=== PATIENT | female | born 1990 | race Two or more races ===

== ENCOUNTER 2016-07-22 09:10 | Emergency (ER) | payer OTHER ==
[2016-07-22] MEDS ORDERED: IBUPROFEN 600 MG TABLET PO ONE (09:49)
[2016-07-22] MEDS ORDERED: DIPH/PERTUSS(ACELL)/TETANUS VAC/PF 0.5 ML SYR (>=10YO) IM ONE (09:50)
[2016-07-22] MEDS ORDERED: LIDOCAINE 1% INJ-PF (10 MG/ML) 30 ML SDV INJ ONE (09:50)
[2016-07-22] MEDS ORDERED: CIPROFLOXACIN HCL 500 MG TABLET PO ONE (09:54)
--- NOTE | 2016-07-22 09:58 | ER Document Report ---
ED Extremity Problem, Lower - General Chief Complaint: Foot Injury Stated Complaint: RIGHT FOOT INJURY Time seen by provider: 09:55 Mode of Arrival: Ambulatory Information source: Patient Notes: 26-year-old female presents to ED for laceration to the bottom of her right foot when she stepped on glass the penetrated her shoe. Patient stated the laceration continued to bleed for several hours until she came to the emergency room she states she stepped on the glass at about 147 this morning. TRAVEL OUTSIDE OF THE [place] IN LAST 30 DAYS: No - HPI Patient complains to provider of: Injury, Pain Location: Foot Occurred: This morning - 147 this morning Where: Outdoors, Work Onset/Duration: Sudden Quality of pain: Sharp Severity: Moderate Pain Level: 3 Context: Laceration, Wearing shoes Recent injury: Yes Associated symptoms: Painful ambulation Exacerbated by: Movement, Walking Relieved by: Elevation - Related Data Allergies/Adverse Reactions: No Known Allergies Allergy (Verified 07/22/16 09:19) Past Medical History - General Information source: Patient - Social History Smoking Status: Current Every Day Smoker Cigarette use (# per day): Yes - half pack a day Chew tobacco use (# tins/day): No Smoking Education Provided: Yes - less than 2 minutes Frequency of alcohol use: Heavy - Every one to 2 days Drug Abuse: None Occupation: Works of the [employer] Lives with: Friend Family History: Arthritis, DM, Hyperlipidemia, Hypertension, Malignancy, Thyroid Disfunction Patient has suicidal ideation: No Patient has homicidal ideation: No - Past Medical History Cardiac Medical History: Reports: None Pulmonary Medical History: Reports: None EENT Medical History: Reports: None Neurological Medical History: Reports: None Endocrine Medical History: Reports: None Renal/ Medical History: Reports: None Malignancy Medical History: Reports: None GI Medical History: Reports: None Musculoskeltal Medical History: Reports None Skin Medical History: Reports None Psychiatric Medical History: Reports: None Traumatic Medical History: Reports: None Infectious Medical History: Reports: None Past Surgical History: Reports: Hx Umbilical Hernia - 2 - Immunizations Hx Diphtheria, Pertussis, Tetanus Vaccination: Yes - 07/22/2016 Review of Systems - Review of Systems Constitutional: No symptoms reported EENT: No symptoms reported Cardiovascular: No symptoms reported Respiratory: No symptoms reported Gastrointestinal: No symptoms reported Genitourinary: No symptoms reported Female Genitourinary: No symptoms reported Musculoskeletal: No symptoms reported Skin: Other - Laceration to the bottom of the right foot Hematologic/Lymphatic: No symptoms reported Neurological/Psychological: No symptoms reported -: Yes All other systems reviewed and negative Physical Exam - Vital signs Vitals: Temp Pulse Resp BP Pulse Ox 98.5 F 82 16 113/69 98 07/22/16 09:13 07/22/16 09:13 07/22/16 09:13 07/22/16 09:13 07/22/16 09:13 Interpretation: Normal - General General appearance: Appears well, Alert - HEENT Head: Normocephalic, Atraumatic Eyes: Normal Pupils: PERRL - Respiratory Respiratory status: No respiratory distress Chest status: Nontender Breath sounds: Normal Chest palpation: Normal - Cardiovascular Rhythm: Regular Heart sounds: Normal auscultation Murmur: No - Abdominal Inspection: Normal Distension: No distension Bowel sounds: Normal Tenderness: Nontender Organomegaly: No organomegaly - Back Back: Normal, Nontender - Extremities General upper extremity: Normal inspection, Nontender, Normal color, Normal ROM , Normal temperature General lower extremity: Normal inspection, Nontender, Normal color, Normal ROM , Normal temperature, Normal weight bearing. No: Tasha's sign - Neurological Neuro grossly intact: Yes Cognition: Normal Orientation: AAOx4 June Coma Scale Eye Opening: Spontaneous [place] Coma Scale Verbal: Oriented June Coma Scale Motor: Obeys Commands [place] Coma Scale Total: 15 Speech: Normal Motor strength normal: LUE, RUE, LLE, RLE Sensory: Normal - Psychological Associated symptoms: Normal affect, Normal mood - Skin Skin Temperature: Warm Skin Moisture: Dry Skin Color: Normal Skin irregularity: Laceration Location of irregularity: Extremities - Right foot Course - Vital Signs Vital signs: Temp Pulse Resp BP Pulse Ox 98.4 F 77 18 126/70 H 100 07/22/16 12:15 07/22/16 12:15 07/22/16 12:15 07/22/16 12:15 07/22/16 12:15 - Diagnostic Test Radiology reviewed: Image reviewed, Reports reviewed Procedures - Laceration/Wound Repair Right Lateral Foot Wound length (cm): 3.5 Wound's Depth, Shape: Other - Kyra with hook Laceration pre-procedure: Sterile PPE donned, Sterile drapes applied, Other - surgical prep Volume Anesthetic (mLs): 8 Wound explored: Contaminated Irrigated w/ Saline (mLs): 250 Wound Repaired With: Sutures Suture Size/Type: 4:0, Ethilon Number of Sutures: 5 Layer Closure?: No Post-procedure wound care: Sterile dressing applied Post-procedure NV exam normal: Yes Complications: No Discharge - Discharge Clinical Impression: right plantar surface of foot laceration Condition: Stable Disposition: HOME, SELF-CARE Instructions: Family Physicians / Practices Additional Instructions: LACERATION CARE: Your laceration has been sutured to keep the skin edges aligned during healing. The time of suture removal depends on the nature and location of your cut. Please follow the care instructions the doctor has outlined for you and return for further care, according to the schedule you've been given. Keep the wound and dressing clean. Unless you were told otherwise, you may shower daily, blotting the wound dry with a clean, unused towel. At other times, If the dressing gets wet or blood soaked, remove it and blot the wound dry, then reapply a new dressing. Unless you were instructed otherwise, dressings should be changed at least daily. If any signs of infection occur (swelling, redness, drainage, increasing tenderness, red streaks, tender lumps in the armpit or groin above the laceration, or fever), see the doctor immediately. SOAP CLEANSING: Gently wash the wound daily using a mild soap (like Ivory, Phisoderm, Neutrogena). Use warm water, rubbing gently until all debris, ooze, and crusting have been washed from the wound. Allow to dry briefly (about 10 minutes) after cleaning. Repeat this cleansing at least three times a day for the first two days and then once or twice a day. ANTIBIOTIC OINTMENT PROTECTION: Your wounds are such that dressing them is not practical or optional. After cleansing, you should apply a thin coating of antibiotic ointment ( Bacitracin, not Neosporin) to the wounds at least three times daily. This lessens infection risk, and may decrease the amount of scarring. Use a q-tip or dull butter knife, not your finger, to apply this ointment. Any debris or ooze which builds up in the ointment should be gently rubbed off with a sterile gauze pad. Harder crusting may need to be gently scrubbed off with a clean wash cloth with soap and warm water, perhaps applying a warm, wet wash cloth to the wound for ten minutes first. Development of redness, severe itching, or blistering may mean allergy to the ointment. See the doctor. TETANUS IMMUNIZATION GIVEN: You have been given an immunization against tetanus. Please record this in your records. In general, a booster is needed only once every 10 years. The tetanus shot protects against tetanus or "lockjaw," which is a complication of certain wound infections (the tetanus shot cannot protect against the actual infection). The immunization site may become warm and red due to local reaction. If this occurs, apply warm compresses and take aspirin or ibuprofen to reduce inflammation and discomfort. Return for evaluation if the reaction becomes severe. PROPHYLACTIC ANTIBIOTIC: The antibiotics which have been prescribed are designed to decrease the risk of infection. Only certain types of wounds benefit from this -- the typical cut, scrape, or burn DOES NOT require antibiotics. Of course, infection can still occur despite the use of prophylactic antibiotics. Your wound will heal with less chance of an infectious complication if you take the medication as directed. The most important dose is the FIRST dose, so don't delay filling the prescription! ORAL NARCOTIC MEDICATION: You have been given a prescription for pain control. This medication is a narcotic. It's best taken with food, as nausea can result if taken on an empty stomach. Don't operate machinery or drive within six hours of taking this medication. Do not combine this medicine with alcohol, or with any medication which can cause sedation (such as cold tablets or sleeping pills) unless you get permission from the physician. Narcotics tend to cause constipation. If possible, drink plenty of fluids and eat a diet high in fiber and fruits. FOLLOW-UP CARE: Please return in __4___ days for an infection check and dressing change. Your sutures should be removed in ___10__ days. To facilitate a timely removal of your sutures, you may return to the Emergency Department at [facility]. You do not need to call for an appointment, but the best time to come in for suture removal is early in the morning. If you have been referred to another physician for follow-up care, call that physicians office for an appointment as you were instructed. If you experience a significant change in your laceration, or if you are concerned there may be an infection (swelling, redness, drainage, increasing tenderness, red streaks, tender lumps in the armpit or groin above the laceration, or fever) , return to the Emergency Department immediately re-evaluation. Prescriptions: Hydrocodone/Acetaminophen [[place] 5-325 mg Tablet] 1 tab PO Q6HP PRN #14 tablet PRN Reason: Ciprofloxacin HCl [Cipro 500 mg Tablet] 500 mg PO BID #20 tablet Forms: Smoking Cessation Education, Return to Work
[2016-07-22 12:31] VITALS: BP 126/70
== END 2016-07-22 12:20 | disposition home or self-care (01) ==
LOC: ER 09:10
PROC: 0HQMXZZ Repair Right Foot Skin, External Approach (ICD-10-PCS; principal; 2016-07-22)
DX: S91.311A Laceration without foreign body, right foot, initial encounter (principal); F17.210 Nicotine dependence, cigarettes, uncomplicated; W18.02XA Striking against glass with subsequent fall, initial encounter; Y99.0 Civilian activity done for income or pay; Z23 Encounter for immunization
CPT/HCPCS: 12042; 99283; 90471; 73620; 90715; J3490

== ENCOUNTER 2020-04-14 15:56 | Emergency (ER) | payer MEDICAID ==
[2020-04-14 16:03] VITALS: BP 125/72
--- NOTE | 2020-04-14 16:27 | ER Document Report ---
ED Suture/Wound Recheck - General Chief Complaint: Suture Removal Stated Complaint: SUTURE REMOVAL/ARMS Time Seen by Provider: 04/14/20 16:19 Primary Care Provider: JOSÉ MIGUEL FERNÁNDEZ DO [ACTIVE STAFF] - Follow up in 1 week (for orthopedic follow up) TRAVEL OUTSIDE OF THE [place] IN LAST 30 DAYS: No - HPI Notes: 29-year-old female to the emergency department with complaints of needing suture removal to multiple dog bites to both of her arms and complaining of left hand pain that is persistent since she was bit. She states she was bit by her brothers rescue dog. Dog is up-to-date on immunizations. She states that she had initially forced sutures placed. To have fallen out. She states the back of her left hand is still very painful and she has some numbness and tingling into the middle finger, ring finger, and pinky. She denies any decrease in strength. She states when you turn touch on the portion of the back of her hand that increases her pain into her hands. She states that when she was initially seen she did not have an x-ray of the hand. She has been using Motrin. She states that she is about to finish her 7-day course of Augmentin. - Related Data Allergies/Adverse Reactions: No Known Allergies Allergy (Verified 07/22/16 09:19) Past Medical History - General Information source: Patient - Social History Smoking Status: Never Smoker Frequency of alcohol use: None Drug Abuse: None Family History: Arthritis, DM, Hyperlipidemia, Hypertension, Malignancy, Thyroid Disfunction Renal/ Medical History: Denies: Hx Peritoneal Dialysis Past Surgical History: Reports: Hx Abdominal Surgery - umbilical hernia, Hx Umbilical Hernia - 2 - Immunizations Hx Diphtheria, Pertussis, Tetanus Vaccination: Yes - 07/22/2016 Review of Systems - Review of Systems Constitutional: denies: Chills, Fever EENT: No symptoms reported Cardiovascular: denies: Chest pain, Palpitations, Heart racing, Syncope, Dizziness, Lightheaded Respiratory: denies: Cough, Short of breath Gastrointestinal: denies: Abdominal pain, Diarrhea, Nausea Musculoskeletal: See HPI Skin: See HPI Neurological/Psychological: No symptoms reported -: Yes All other systems reviewed and negative Physical Exam - Vital signs Vitals: Temp Pulse Resp BP Pulse Ox 98.6 F 97 20 125/72 100 04/14/20 16:02 04/14/20 16:02 04/14/20 16:02 04/14/20 16:02 04/14/20 16:02 Interpretation: Normal Notes: PHYSICAL EXAMINATION: GENERAL: Well-appearing, well-nourished and in no acute distress. HEAD: Atraumatic, normocephalic. NECK: Normal range of motion, supple without lymphadenopathy LUNGS: Breath sounds clear to auscultation bilaterally and equal. No wheezes rales or rhonchi. HEART: Regular rate and rhythm without murmurs EXTREMITIES: Normal range of motion, no pitting or edema. No cyanosis. See skin. There is tenderness to palpation over the dorsum of the left hand overly ing the fifth metacarpal. No edema or erythema. There is no warmth to this area. Increases with pain with movement. She states she has decreased sensation to the back of the left pinky, ring finger, middle finger. She has no snuffbox tenderness bilaterally she has 5 out of 5 strength in testing of both flexor tendons as well as the extensor tendon in all fingers against resistance. Cap refill is less than 2 seconds. Radial pulses are intact and equal NEUROLOGICAL: No focal neurological deficits. Moves all extremities spontaneously and on command. PSYCH: Normal mood, normal affect. SKIN: Warm, Dry, normal turgor, there are multiple dog bites to the left and right forearm as well as the left hand. There are 12 sutures intact. They seem to be healing well. There is no purulence. There is mild tenderness to palpation over a dog bite to the left thumb. There is no purulence or streaking erythema. See musculoskeletal for further discussion. Course - Re-evaluation Re-evalutation: 04/14/20 Impression: Suture removal, multiple dog bites, left hand paresthesia. X-ray is reassuring for no fractures and no retained foreign body. Patient does not have any snuffbox tenderness. Suspect that when she was bit it created some inflammation and that is giving her a little paresthesia into the hand. However we will send her to follow-up with orthopedist. I have also extended her antibiotics for 3 more days for a total of 10 days of Augmentin. I have encouraged her to return if she has any worsening symptoms such as fevers, purulent discharge, worsening pain, streaking redness. Patient agrees with plan. - Vital Signs Vital signs: Temp Pulse Resp BP Pulse Ox 98.6 F 97 20 125/72 100 04/14/20 16:02 04/14/20 16:02 04/14/20 16:02 04/14/20 16:02 04/14/20 16:02 - Diagnostic Test Radiology reviewed: Image reviewed, Reports reviewed Discharge - Discharge Clinical Impression: Visit for suture removal, Visit for wound check, Left hand paresthesia Condition: Stable Disposition: HOME, SELF-CARE Instructions: Animal Bites ([facility]) Additional Instructions: Your Xray was reassuring today -- no fractures or retained teeth from dog bite. Please follow up with the orthopedist listed for further evaluation of the numbness in your hand. Continue the 800mg Motrin for pain and take steroids. Your antibiotics have been extended today for another three days. Return if worsening symptoms such has worsening pain, fevers, chills, streaking redness, puss from wounds. Prescriptions: Amoxicillin/Potassium Clav [Augmentin 875-125 Tablet] 1 tab PO BID #6 tablet Prednisone [Deltasone 20 mg Tablet] 40 mg PO DAILY 5 Days #10 tablet Referrals: JOSÉ MIGUEL FERNÁNDEZ DO [ACTIVE STAFF] - Follow up in 1 week (for orthopedic follow up)
[2020-04-14] MEDS ORDERED: IBUPROFEN 800 MG TABLET PO ONE (16:28)
--- NOTE | 2020-04-14 16:59 | RADIOLOGY REPORT (SQ) ---
EXAM DESCRIPTION: HAND LEFT 3 VIEWS IMAGES COMPLETED DATE/TIME: 04/14/2020 4:50 pm REASON FOR STUDY: persistent left hand pain after dog bite COMPARISON: None. EXAM PARAMETERS: NUMBER OF VIEWS: Three views. TECHNIQUE: AP, lateral and oblique radiographic images acquired of the left hand. LIMITATIONS: None. FINDINGS: MINERALIZATION: Normal. BONES: No acute fracture or dislocation. No worrisome bone lesions. JOINTS: No effusions. SOFT TISSUES: No soft tissue swelling. No foreign body. OTHER: No other significant finding. IMPRESSION: NEGATIVE STUDY OF THE LEFT HAND. NO RADIOGRAPHIC EVIDENCE OF ACUTE INJURY. TECHNICAL DOCUMENTATION: JOB ID: [id number] 2010 [employer]- All Rights Reserved Reading location - IP/workstation name: [email or web address]
== END 2020-04-14 17:20 | disposition home or self-care (01) ==
LOC: ER 15:56
DX: S51.851D Open bite of right forearm, subsequent encounter (principal); S51.852D Open bite of left forearm, subsequent encounter; W54.0XXD Bitten by dog, subsequent encounter; M79.642 Pain in left hand; R20.0 Anesthesia of skin; R20.2 Paresthesia of skin
CPT/HCPCS: 99283; 73130; J3490